=== PATIENT | female | born 1985 | race Caucasian/White ===

== ENCOUNTER 2023-12-19 21:31 | Emergency (ER) | payer OTHER ==
[2023-12-19 21:42] VITALS: BP 151/85; PULSE 100; RESP 16; TEMP 98.5; BMI 27.3
[2023-12-19] MEDS: SODIUM CHLORIDE 0.9% 500 ML INFUS.BAG IV ONE (22:28)
[2023-12-19] MEDS: ACETAMINOPHEN 1000 MG/100 ML BAG IVPB ONE (22:29)
[2023-12-19] MEDS ORDERED: ONDANSETRON 4 MG/2 ML VIAL ONE (22:30)
[2023-12-19] MEDS: ONDANSETRON 4 MG/2 ML VIAL IVPUSH ONE (22:34)
[2023-12-19 22:43] LABS: HEMATOCRIT 38.5 % (32.4-45.2); HEMOGLOBIN 13.6 GM/dL (10.7-15.3); MCH 30.8 pg (25.7-33.7); MCHC 35.3 g/dl (32.0-36.0); MEAN CELL VOLUME 87.3 fl (80-96); MEAN PLT VOLUME 8.1 fl (7.5-11.1); PLATELET COUNT 184 10^3/uL (134-434); RBC 4.41 M/mm3 (3.60-5.2); RDW 13.6 % (11.6-15.6); WHITE BLOOD COUNT 2.2 K/mm3 (4.0-10.0)
[2023-12-19 22:58] LABS: POTASSIUM 3.4 mmol/L (3.5-5.1)
[2023-12-19 23:00] LABS: CALCIUM 8.8 mg/dL (8.5-10.1)
[2023-12-19 23:01] LABS: ALBUMIN 3.2 g/dl (3.4-5.0); BLOOD UREA NITROGEN 7.4 mg/dL (7-18)
[2023-12-19 23:02] LABS: MAGNESIUM 1.8 mg/dL (1.8-2.4)
[2023-12-19 23:04] LABS: CREATININE 0.8 mg/dL (0.55-1.3); PHOSPHOROUS 3.4 mg/dL (2.5-4.9)
[2023-12-19 23:05] LABS: BILIRUBIN,TOTAL 0.9 mg/dL (0.2-1)
[2023-12-19] MEDS ORDERED: POTASSIUM CHLORIDE TABS 20 MEQ TABLET.ER (FP) PO ONE (23:10)
[2023-12-19] MEDS: POTASSIUM CHLORIDE TABS 20 MEQ TABLET.ER (FP) PO ONE (23:13)
== END 2023-12-20 01:14 | disposition home or self-care (01) ==
LOC: JER 21:31
DX: R19.7 Diarrhea, unspecified (principal); R11.0 Nausea; R07.89 Other chest pain; R68.83 Chills (without fever); J06.9 Acute upper respiratory infection, unspecified; Z20.822 Contact with and (suspected) exposure to COVID-19
CPT/HCPCS: 0241U-QW; 36415; 71046-TC-FY; 80053; 83735; 84100; 84703; 85025; 93005; 93010; 99285-25; J0131